=== PATIENT | male | born 1965 | race Caucasian/White ===

== ENCOUNTER 2018-09-24 12:58 | Observation (INO) ==
[2018-09-24 15:22] LABS: Basophils % 0.4 %; Eosinophils % 0.4 %; Hematocrit 43.5 % (37.5-50.1); Lymphocytes # 0.8 K/mcL (0.6-4.6); Lymphocytes % 17.5 %; Mean Corpuscular HGB Conc 34.5 g/dL (31.6-35.5); Mean Corpuscular Hemoglobin 33.7 pg (28.0-33.3); Mean Corpuscular Volume 97.8 fL (83.0-100.0); Mean Platelet Volume 7.8 fL (9.4-12.4); Monocytes # 0.4 K/mcL (0.0-1.3); Monocytes % 7.9 %; Neutrophils # 3.5 K/mcL (1.6-8.9); Platelet Count 144 K/mcL (140-400); Red Blood Count 4.45 M/mcL (4.19-5.50); Red Cell Distribution Width 14.6 % (11.5-14.5); Segmented Neutrophils % 72.8 %; White Blood Count 4.8 K/mcL (4.3-11.1)
[2018-09-24 15:40] LABS: Bilirubin,Urine Negative (Negative); Blood,Urine Negative (Negative); Clarity,Urine Clear (Clear); Color,Urine Yellow (Yellow); Glucose,Urine (UA) Normal (Normal); Ketones,Urine Negative (Negative); Leukocyte Esterase,Urine Negative (Negative); Nitrite,Urine Negative (Negative); PH,Urine 6.5 pH Units (5.0-8.0); Protein,Urine Negative (Neg-Trace); Specific Gravity,Urine 1.017 (1.010-1.025); Urobilinogen,Urine Normal (Normal)
[2018-09-24 15:41] LABS: Alanine Aminotransferase 189 Units/L (7-52); Albumin/Globulin Ratio 1.9 (1.1-2.2); Alkaline Phosphatase 56 Units/L (34-104); Aspartate Amino Transferase 286 Units/L (13-39); BUN/Creatinine Ratio 16 (6-26); Blood Urea Nitrogen 18 mg/dL (6-20); Calcium 8.9 mg/dL (8.6-10.3); Carbon Dioxide 21 mEq/L (23-29); Chloride 103 mEq/L (98-107); Globulin 2.1 g/dL (2.4-3.5); Glucose 90 mg/dL (70-105); Magnesium 2.1 mg/dL (1.6-2.6); Osmolality,Calculated 283 (280-300); Phosphorous 2.6 mg/dL (2.7-4.5); Potassium 4.3 mEq/L (3.5-5.1); Sodium 136 mEq/L (136-145); Total Protein 6.1 g/dL (6.4-8.9); eGFR For African Americans > 60 (> 60); eGFR For Non-African Americans > 60 (> 60)
[2018-09-24 15:42] LABS: Troponin I < 0.03 ng/mL (< 0.04)
[2018-09-24 15:55] LABS: Thyroid Stimulating Hormone 0.447 mcIU/mL (0.340-5.600)
[2018-09-24] MEDS ORDERED: 0.9 % Sodium Chloride 1,000 ML IVC ONE (15:59)
[2018-09-24 17:08] LABS: INR 1.1
[2018-09-24 20:16] LABS: Ethanol 17 mg/dL (Less than 10)
[2018-09-24 20:29] LABS: Amphetamine Screen,Urine Negative ng/mL (Cutoff=1000); Barbiturate Screen,Urine Negative ng/mL (Cutoff=200); Benzodiazepines Screen,Urine Positive ng/mL (Cutoff=200); Cannabinoid Screen,Urine Positive ng/mL (Cutoff = 50); Cocaine Screen,Urine Negative ng/mL (Cutoff= 300); Opiate Screen,Urine Negative ng/mL (Cutoff=300); Phencyclidine Screen,Urine Negative ng/mL (Cutoff=25)
[2018-09-24] MEDS ORDERED: Naloxone 0.4 MG/ML INJ IVP PRN (20:45)
[2018-09-24] MEDS ORDERED: *HR* LORazepam 2 MG/ML VIAL IVP PRN ×3 (20:45)
[2018-09-24] MEDS ORDERED: Acetaminophen 325 MG TABLET PO PRN (21:05)
[2018-09-24] MEDS: *HR* OxyCODONE Immed Rel 5 MG TABLET PO PRN (21:15)
[2018-09-25] MEDS: *HR* Heparin 5,000 UNIT/ML VIAL SQ SCH ×2 (04:27→17:50)
[2018-09-25] MEDS: *HR* HYDROcodone/Acet 5/325 mg TABLET PO PRN ×2 (04:27→21:47)
[2018-09-25 07:07] LABS: Hematocrit 36.4 % (37.5-50.1); Mean Corpuscular HGB Conc 33.5 g/dL (31.6-35.5); Mean Corpuscular Hemoglobin 34.2 pg (28.0-33.3); Platelet Count 118 K/mcL (140-400); Red Blood Count 3.57 M/mcL (4.19-5.50); Red Cell Distribution Width 14.5 % (11.5-14.5); White Blood Count 3.7 K/mcL (4.3-11.1)
[2018-09-25 07:10] LABS: Hemoglobin 12.2 g/dL (12.9-16.9)
[2018-09-25 07:14] LABS: INR 0.9; Prothrombin Time 10.7 Seconds (9.4-12.1)
[2018-09-25] MEDS: *HR* OxyCODONE Immed Rel 5 MG TABLET PO PRN ×2 (07:42→15:43)
[2018-09-25 07:57] LABS: Alanine Aminotransferase 123 Units/L (7-52); Albumin 3.1 g/dL (3.5-5.7); Albumin/Globulin Ratio 1.7 (1.1-2.2); Alkaline Phosphatase 61 Units/L (34-104); Aspartate Amino Transferase 133 Units/L (13-39); BUN/Creatinine Ratio 16 (6-26); Bilirubin,Total 0.9 mg/dL (0.3-1.0); Blood Urea Nitrogen 20 mg/dL (6-20); Calcium 8.1 mg/dL (8.6-10.3); Carbon Dioxide 27 mEq/L (23-29); Chloride 102 mEq/L (98-107); Chol/HDL Ratio 11.8 (0-4.9); Cholesterol 189 mg/dL (< 200); Globulin 1.8 g/dL (2.4-3.5); Glucose 89 mg/dL (70-105); HDL Cholesterol 16 mg/dL (40-59); Osmolality,Calculated 286 (280-300); Phosphorous 4.5 mg/dL (2.7-4.5); Potassium 3.6 mEq/L (3.5-5.1); Sodium 137 mEq/L (136-145); Total Protein 4.9 g/dL (6.4-8.9); Triglycerides 1431 mg/dL (< 150); eGFR For African Americans > 60 (> 60); eGFR For Non-African Americans > 60 (> 60)
[2018-09-25 08:15] LABS: Hepatitis B Surface Antigen Nonreactive (Nonreactive)
[2018-09-25 08:44] LABS: Hepatitis B Core IgM Nonreactive (Nonreactive); Hepatitis C Virus Antibody Nonreactive (Nonreactive)
[2018-09-25 08:45] LABS: Hepatitis A Antibody IgM Nonreactive (Nonreactive)
[2018-09-25 09:58] LABS: Creatine Kinase 44 Units/L (30-223)
[2018-09-25 16:47] LABS: VBG HCO3 26 mEq/L (21-27); VBG PCO2 47 mmHg (41-51); VBG PH 7.35 pH Units (7.32-7.42); VBG PO2 91 mmHg (25-50)
[2018-09-25] MEDS ORDERED: Thiamine (B-1) 100 MG, Folic Acid 1 MG, MVI, adult with vitamin K 10 ML in 0.9 % Sodi... IVPB SCH (18:00)
[2018-09-26] MEDS: *HR* OxyCODONE Immed Rel 5 MG TABLET PO PRN (02:45)
[2018-09-26 05:15] LABS: Hemoglobin 12.4 g/dL (12.9-16.9); Mean Corpuscular HGB Conc 33.5 g/dL (31.6-35.5); Mean Corpuscular Hemoglobin 33.9 pg (28.0-33.3); Mean Corpuscular Volume 101.1 fL (83.0-100.0); Mean Platelet Volume 8.3 fL (9.4-12.4); Platelet Count 127 K/mcL (140-400); Red Blood Count 3.66 M/mcL (4.19-5.50)
[2018-09-26] MEDS: *HR* Heparin 5,000 UNIT/ML VIAL SQ SCH (05:19)
[2018-09-26 05:43] LABS: Alanine Aminotransferase 97 Units/L (7-52); Albumin 3.5 g/dL (3.5-5.7); Albumin/Globulin Ratio 1.8 (1.1-2.2); Alkaline Phosphatase 65 Units/L (34-104); Aspartate Amino Transferase 72 Units/L (13-39); BUN/Creatinine Ratio 11 (6-26); Bilirubin,Direct 0.1 mg/dL (0.0-0.2); Bilirubin,Indirect 0.7 mg/dL (0.0-1.2); Bilirubin,Total 0.8 mg/dL (0.3-1.0); Blood Urea Nitrogen 13 mg/dL (6-20); Calcium 8.7 mg/dL (8.6-10.3); Carbon Dioxide 29 mEq/L (23-29); Chloride 104 mEq/L (98-107); Glucose 107 mg/dL (70-105); Osmolality,Calculated 289 (280-300); Potassium 4.6 mEq/L (3.5-5.1); Sodium 139 mEq/L (136-145); Total Protein 5.5 g/dL (6.4-8.9); Triglycerides 984 mg/dL (< 150); eGFR For African Americans > 60 (> 60); eGFR For Non-African Americans > 60 (> 60)
[2018-09-26 07:04] VITALS: BP 130/77
[2018-09-28] MEDS ORDERED: Folic Acid 1 MG TABLET PO SCH (09:00)
[2018-09-28] MEDS ORDERED: Vitamin B Complex/Vit C/Vit E 1 EACH TABLET PO SCH (09:00)
== END 2018-09-26 09:25 | disposition home health service (06) ==
LOC: 3NENU 12:58 → EMEROOARM 12:58 → SUATTDRO 18:51 → 3NENU 19:40 → 3ANU 09-25 16:26
PROVIDERS: ADMIT Internal Medicine; ATTEND Internal Medicine

== ENCOUNTER 2021-04-15 03:01 | Observation (INO) ==
[2021-04-15] MEDS ORDERED: Ondansetron 4 MG/2 ML VIAL IVP PRN (03:17)
[2021-04-15] MEDS ORDERED: Naloxone 0.4 MG/ML INJ IVP PRN ×2 (03:17→19:36)
[2021-04-15] MEDS: Morphine Sulfate 2 MG/ML SYRINGE IVP PRN ×2 (04:42→08:22)
[2021-04-15] MEDS: Ketorolac 30 MG/ML VIAL IM PRN ×2 (06:46→12:41)
[2021-04-15 07:32] LABS: Influenza A PCR Negative (Negative); Influenza B PCR Negative (Negative); Resp. Syncytial Virus PCR Negative (Negative)
[2021-04-15 09:16] LABS: SARS-CoV-2 by PCR (In House) Positive (Negative)
[2021-04-15] MEDS ORDERED: *HR* Propofol 200 MG/20 ML VIAL IVP ONE (10:02)
[2021-04-15] MEDS ORDERED: Ondansetron 4 MG/2 ML VIAL ONE ×2 (10:02→14:30)
[2021-04-15] MEDS ORDERED: *HR* FentaNYL (PF) 100 MCG/2 ML VIAL ONE (10:02)
[2021-04-15] MEDS ORDERED: Lidocaine -MPF 2% 5 ML VIAL ONE ×3 (10:02→19:22)
[2021-04-15] MEDS ORDERED: *HR* Midazolam HCl 2 MG/2 ML VIAL ONE (10:02)
[2021-04-15] MEDS ORDERED: Lidocaine HCL 4 ML Topical Solution (Laryng-O-Jet Kit Sterile Pak) TP ONE (13:43)
[2021-04-15] MEDS ORDERED: *HR* Vasopressin 20 UNIT/ML VIAL ONE (14:24)
[2021-04-15] MEDS ORDERED: Dexmedetomidine HCl 400 MCG/100 ML MLS IVC ONE (14:24)
[2021-04-15] MEDS ORDERED: *HR* Rocuronium Bromide 50 MG/5 ML VIAL ONE (14:29)
[2021-04-15] MEDS ORDERED: *HR* Succinylcholine 200 MG/10 ML VIAL IVP ONE (14:29)
[2021-04-15] MEDS ORDERED: Ketamine HCL *QUVA* 50mg (1mL) SYRINGE ONE (14:31)
[2021-04-15] MEDS ORDERED: Acetaminophen IV 1,000 MG/100 ML BAG IVPB ONE (16:22)
[2021-04-15] MEDS ORDERED: Povidone-Iodine 45 ML, Sodium Chloride IRRigation 1,000 ML IR ONE (17:30)
[2021-04-15] MEDS ORDERED: Sugammadex Sodium 200 MG/2 ML VIAL IV ONE (18:43)
[2021-04-15] MEDS ORDERED: Ropivacaine/PF 0.5% 30 ML VIAL ONE (19:04)
[2021-04-15] MEDS ORDERED: Sennosides 8.6 MG TABLET PO PRN (19:36)
[2021-04-15] MEDS ORDERED: Morphine Sulfate 2 MG/ML SYRINGE IVP PRN (19:42)
[2021-04-15] MEDS: *HR* Enoxaparin 40 MG/0.4 ML SYRINGE SQ SCH (20:51)
[2021-04-16] MEDS: Ketorolac 30 MG/ML VIAL IM SCH ×5 (01:40→23:23)
[2021-04-16] MEDS: CeFAZolin 2 GM/120 ML BAG IVPB SCH ×2 (01:40→09:26)
[2021-04-16 05:48] LABS: Hematocrit 32.1 % (37.5-50.1); Hemoglobin 10.5 g/dL (12.9-16.9); Immature Granulocytes % 0.2 % (0-4); Lymphocytes # 0.9 K/mcL (0.6-4.6); Lymphocytes % 18.2 %; Mean Corpuscular HGB Conc 32.7 g/dL (31.6-35.5); Mean Corpuscular Hemoglobin 28.8 pg (28.0-33.3); Mean Corpuscular Volume 87.9 fL (83.0-100.0); Mean Platelet Volume 8.7 fL (9.4-12.4); Monocytes # 0.3 K/mcL (0.0-1.3); Monocytes % 6.5 %; Neutrophils # 3.8 K/mcL (1.6-8.9); Platelet Count 160 K/mcL (140-400); Red Blood Count 3.65 M/mcL (4.19-5.50); Red Cell Distribution Width 14.5 % (11.5-14.5); Segmented Neutrophils % 75.1 %; White Blood Count 5.1 K/mcL (4.3-11.1)
[2021-04-16 08:07] LABS: Alanine Aminotransferase 8 Units/L (7-52); Albumin 3.5 g/dL (3.5-5.7); Albumin/Globulin Ratio 1.8 (1.1-2.2); Alkaline Phosphatase 58 Units/L (34-104); Aspartate Amino Transferase 13 Units/L (13-39); BUN/Creatinine Ratio 18 (6-26); Bilirubin,Total 0.3 mg/dL (0.3-1.0); Blood Urea Nitrogen 20 mg/dL (6-20); Calcium 8.4 mg/dL (8.6-10.3); Carbon Dioxide 24 mEq/L (23-29); Chloride 107 mEq/L (98-107); Globulin 1.9 g/dL (2.4-3.5); Glucose 129 mg/dL (70-105); Osmolality,Calculated 294 (280-300); Potassium 4.1 mEq/L (3.5-5.1); Sodium 140 mEq/L (136-145); Total Protein 5.4 g/dL (6.4-8.9); eGFR For African Americans > 60 (> 60); eGFR For Non-African Americans > 60 (> 60)
[2021-04-16] MEDS: *HR* Enoxaparin 40 MG/0.4 ML SYRINGE SQ SCH ×2 (09:27→20:09)
[2021-04-16] MEDS: *HR* OxyCODONE Immed Rel 5 MG TABLET PO PRN ×2 (10:29→16:35)
[2021-04-16] MEDS: Mirtazapine 15 MG TABLET PO SCH (20:08)
[2021-04-16] MEDS: *HR* LORazepam 0.5 MG TABLET PO SCH (20:08)
[2021-04-17] MEDS: Ketorolac 30 MG/ML VIAL IM SCH ×3 (06:41→17:30)
[2021-04-17] MEDS: lisinopriL 20 MG TABLET PO SCH (10:19)
[2021-04-17] MEDS: *HR* LORazepam 0.5 MG TABLET PO SCH ×2 (10:19→21:34)
[2021-04-17] MEDS: *HR* Enoxaparin 40 MG/0.4 ML SYRINGE SQ SCH ×2 (10:20→21:34)
[2021-04-17] MEDS: allopurinoL 300 MG TABLET PO SCH (10:24)
[2021-04-17] MEDS: Mirtazapine 15 MG TABLET PO SCH (21:34)
[2021-04-18] MEDS: Ketorolac 30 MG/ML VIAL IM SCH ×3 (00:31→13:02)
[2021-04-18] MEDS: *HR* Enoxaparin 40 MG/0.4 ML SYRINGE SQ SCH (08:21)
[2021-04-18] MEDS: allopurinoL 300 MG TABLET PO SCH (08:22)
[2021-04-18] MEDS: *HR* LORazepam 0.5 MG TABLET PO SCH (08:22)
[2021-04-18] MEDS: lisinopriL 20 MG TABLET PO SCH (08:22)
[2021-04-18 12:08] VITALS: BP 132/79; PULSE 84; TEMP 97.9; O2SAT 95
[2021-04-18] MEDS ORDERED: rOPINIRole 0.25 MG TABLET PO SCH (21:00)
== END 2021-04-18 16:45 | disposition home health service (06) ==
LOC: 4WAOSI → SUATTDRO 03:01
PROVIDERS: ADMIT Family Medicine; ATTEND Hospitalist